=== PATIENT | female | born 2000 | race Caucasian/White ===

== ENCOUNTER 2022-12-03 15:09 | Emergency (ER) | payer SELFPAY ==
[2022-12-03] MEDS ORDERED: Rabies Vaccine (Avian) 2.5 Unit Inj Kit IM ONE (15:42)
[2022-12-03] MEDS ORDERED: Rabies Immune Globulin/PF (HyperRAB) 300 UNIT/ML 5 ML SDV IM ONE ×2 (15:42→16:15)
== END 2022-12-03 16:48 | disposition home or self-care (01) ==
LOC: JP.ED 15:09
DX: Z20.3 Contact with and (suspected) exposure to rabies (principal)
CPT/HCPCS: 90375; 90471; 90675; 96372; 99283-25